=== PATIENT | female | born 1965 | race Caucasian/White ===

== ENCOUNTER → 2020-12-25 | Outpatient (CLI) | payer OTHER | LOC: LAB 12:31 | PROVIDERS: ATTEND Hospitalist | DX: Z20.822 Contact with and (suspected) exposure to COVID-19 (principal) ==

== ENCOUNTER → 2021-02-06 | Outpatient (CLI) | payer OTHER ==
--- NOTE | 2021-02-06 11:35 | 2DMMODE ---
[facility] [place] [address] 2 D/M-MODE ECHOCARDIOGRAM Name: YAMILA WILD Room #: REG LUIS EDUARDO De [place].#: [id number] Admission: 02/06/21 Attend Phys: Ernesto Heck MD Discharge: Date of : 61 Report #: [id number] THIS REPORT FOR: cc: Chioma Edmonds MD, Margaret A. MD Lammoglia, Francisco J. MD ~ APPROVED REPORT Study performed: 02/06/2021 11:00:12 EXAM: Comprehensive 2D, Doppler, and color-flow Echocardiogram Patient Location: Out-Patient Status: routine BSA: 1.95 HR: 65 bpm Rhythm: NSR Other Information Study Quality: Good Indications Tachycardia. Post Covid. 2D Dimensions RVDd: 32.60 mm IVSd: 10.40 (7-11mm) LVOT Diam: 21.41 (18-24mm) LVDd: 41.64 mm PWd: 10.26 (7-11mm) Ascending Ao: 28.14 (22-36mm) LVDs: 29.42 (25-40mm) Left Atrium: 38.35 (27-40mm) Aortic Root: 31.79 mm Volumes Left Atrial Volume (Systole) Single Plane 4CH: 26.60 mL Single Plane 2CH: 48.62 mL LA ESV Index: 21.00 mL/m2 Aortic Valve AoV Peak Jhon.: 1.36 m/s AO Peak Gr.: 7.42 mmHg LVOT Max P.53 mmHg LVOT Max V: 1.06 m/s BOB Vmax: 2.81 cm2 [facility] [address] [place] [address] 2 D/M-MODE ECHOCARDIOGRAM Name: WILDYAMILA Room #: REG [facility]#: [id number] Admission: 02/06/21 Attend Phys: Ernesto Heck MD Discharge: Date of : 61 Report #: [id number] Mitral Valve E/A Ratio: 0.8 MV Decel. Time: 205.39 ms MV E Max Jhon.: 0.68 m/s MV A Jhon.: 0.82 m/s MV PHT: 59.56 ms IVRT: 93.43 ms Pulmonary Valve PV Peak Jhon.: 1.03 m/s PV Peak Gr.: 4.20 mmHg Pulmonary Vein P Vein S: 0.72 m/s P Vein D: 0.55 m/s P Vein S/D Ratio: 1.31 Tricuspid Valve RAP Estimate: 5.00 mmHg Left Ventricle The left ventricle is normal size. There is normal LV segmental wall motion. There is normal left ventricular wall thickness. Left ventricular systolic function is normal. LVEF is 60%. Mild diastolic dysfunction is present (impaired relaxation pattern). Right Ventricle The right ventricle is normal size. The right ventricular systolic function is normal. Atria The left atrium size is normal. The right atrium size is normal. Aortic Valve The aortic valve is normal in structure. No aortic regurgitation is present. There is no aortic valvular stenosis. Mitral Valve The mitral valve is normal in structure. There is no mitral valve regurgitation noted. No evidence of mitral valve stenosis. Tricuspid Valve The tricuspid valve is normal in structure. There is no tricuspid valve regurgitation noted. Unable to assess PA pressure. [facility] [place] [place] [address] 2 D/M-MODE ECHOCARDIOGRAM Name: YAMILA WILD Room #: REG [facility].#: [id number] Admission: 02/06/21 Attend Phys: Ernesto Heck MD Discharge: Date of : 61 Report #: [id number] Pulmonic Valve The pulmonary valve is normal in structure. There is no pulmonic valvular regurgitation. Great Vessels The aortic root is normal in size. The ascending aorta is normal in size. IVC is normal in size and collapses >50% with inspiration. Pericardium There is no pericardial effusion. <Conclusion> The left ventricle is normal size. There is normal left ventricular wall thickness. LVEF is 60%. The right ventricle is normal size. The left atrium size is normal. The aortic valve is normal in structure. The mitral valve is normal in structure. The tricuspid valve is normal in structure. The pulmonary valve is normal in structure. The aortic root is normal in size. There is no pericardial effusion. <ELECTRONICALLY SIGNED> By: True Nair MD 02/06/21 [id number] True Nair MD /INF
[2021-02-06 13:55] LABS: ABSOLUTE NEUTROPHILS 6.1 thou/uL (1.4-8.2); BASOPHILS 0.7 % (0.0-2.0); EOSINOPHILS 0.9 % (0.0-3.0); HEMOGLOBIN 13.6 gm/dL (12.0-15.0); LYMPHOCYTES 18.3 % (24.0-44.0); MCH 32.3 pg (26.0-34.0); MCV 92.4 fL (80.0-100.0); MONOCYTES 10.3 % (1.0-8.0); PLATELET COUNT 446 thou/uL (150-400); POLYS 69.8 % (36.0-66.0); RBC 4.22 mil/uL (4.20-5.00); RDW 12.6 % (10.5-14.5); WBC 8.7 thou/uL (4.0-11.0)
[2021-02-06 14:12] LABS: CALCIUM 9.1 mg/dL (8.5-10.1); CREATININE 0.9 mg/dL (0.6-1.0); POTASSIUM 3.5 mmol/L (3.5-5.1)
== END ==
LOC: CV 08:46
PROVIDERS: ATTEND Hospitalist
DX: R00.0 Tachycardia, unspecified (principal)

== ENCOUNTER 2021-03-13 11:12 | Emergency (ER) | payer OTHER ==
[~2021-03-13] VITALS: Ht 170.2 cm; Wt 81.7 kg
[2021-03-13 11:14] VITALS: BP 135/100
[2021-03-13] MEDS ORDERED: APAP W/CODEINE1 TA2 PO (11:40)
[2021-03-13] MEDS ORDERED: NAPROSYN500 MG PO (11:40)
[2021-03-13] MEDS ORDERED: MEDROLDOSEPACK PO (11:40)
== END 2021-03-13 11:57 | disposition home or self-care (01) ==
LOC: ER 11:12
DX: M54.50 Low back pain, unspecified (principal); Z88.0 Allergy status to penicillin; Z88.2 Allergy status to sulfonamides